=== PATIENT | female | born 1960 | race African-American/Black ===

== ENCOUNTER 2018-08-26 10:15 | Emergency (ER) ==
[2018-08-26 10:41] VITALS: BP 203/119; TEMP 98; BMI 40.0
--- NOTE | 2018-08-26 10:45 | ED.PDOC ---
General ED Provider: Dr. PRINCESS GUTIERREZ Chief Complaint: Medication Refill Stated Complaint: Redication refil request by son (POA). Patient off all medications approx 90 days. Has medical history as well as psych hx - schizophrenia. Son also requesting MH consult. Patient is minimally cooperative with the visit to ER; says there is nothing wrong with her and that she was taken off all medications because she did not need anything. Son says she threw meds away. Time Seen by Physician: 10:45 Mode of Arrival: Walk-In Information Source: Patient Nursing and Triage Documentation Reviewed and Agree: Yes Does patient meet sepsis criteria?: No System Inflammatory Response Syndrome: Not Applicable Sepsis Protocol: For patient's 13 years and over: Temp is 96.8 and below OR 101 and greater Pulse >90 BPM Resp >20/minute Acutely Altered Mental Status Are patient's symptoms suggestive of a new infection, such as: -Pneumonia -Skin, Soft Tissue -Endocarditis -UTI -Bone, Joint Infection -Implantable Device -Acute Abdominal Infection -Wound Infection -Meningitis -Blood Stream Catheter Infection -Unknown Review of Systems - Review Of Systems Constitutional: Reports: No symptoms Respiratory: Reports: No symptoms Cardiac: Reports: No symptoms GI: Reports: No symptoms All Other Systems: Reviewed and Negative Past Medical History - Past Medical History Previously Healthy: No (Medical/Psych hx; no current meds) Endocrine: Reports: DM 2 Cardiovascular: Reports: Hypertension Respiratory: Reports: Unknown (Possibly PE or DVT hx) Hematological: Reports: Other (Thrombocytopenia) Gastrointestinal: Reports: GERD Genitourinary: Reports: None Neuro/Psych: Reports: Schizophrenia Musculoskeletal: Reports: Unknown Cancer: Reports: Unknown Last Menstrual Period: unknown - Surgical History General Surgical History: Reports: Appendectomy - Family History Family History: Reports: Unknown - Social History Smoking Status: Former smoker Hx Substance Use: No Alcohol Screening: Occasionally Physical Exam - Physical Exam Appearance: Well-appearing Ill-appearing: None Pain Distress: None Eyes: RUBEN, EOMI ENT: Oropharynx normal Neck: Supple Respiratory: Airway patent, Breath sounds clear, Respirations nonlabored Cardiovascular: RRR, Pulses normal Musculoskeletal: Normal strength, ROM intact Skin: Warm, Dry, Normal color Neurological: Motor intact, Alert, Oriented Psychiatric: Affect appropriate, Mood appropriate (does not want to be here - says no problems and does not need medications) Critical Care Note - Critical Care Note Total Time (mins): 45 Comments: Medical evaluation, labs, clinical picture, history of MH issues/schizophrenia and discussion with MH workers who evaluated patient psychosocial presentaiton. Course - Course Hematology/Chemistry: 08/26/18 12:20 08/26/18 12:20 Orders, Labs, Meds: Lab Review 08/26/18 08/26/18 08/26/18 11:52 11:52 12:20 WBC 7.45 RBC 4.83 Hgb 12.5 Hct 39.0 MCV 80.7 L MCH 25.9 L MCHC 32.1 RDW Coeff of Radha 13.9 Plt Count 147 Immature Gran % (Auto) 0.1 Neut % (Auto) 73.7 Lymph % (Auto) 19.2 [place] % (Auto) 5.9 Eos % (Auto) 0.8 Baso % (Auto) 0.3 Immature Gran # (Auto) 0.0 Neut # (Auto) 5.5 Lymph # (Auto) 1.4 [place] # (Auto) 0.4 Eos # (Auto) 0.1 Baso # (Auto) 0.0 Plt Morphology Comment Anisocytosis Not present RBC Morph Comment Normal D-Dimer (Manual) Sodium Potassium Chloride Carbon Dioxide Anion Gap BUN Creatinine Estimated GFR (MDRD) BUN/Creatinine Ratio Glucose Calcium Total Bilirubin AST ALT Alkaline Phosphatase Total Protein Albumin Globulin Albumin/Globulin Ratio TSH Free T4 Urine Color Yellow Urine Clarity Clear Urine pH 5.5 Ur Specific [place] 1.010 Urine Protein Negative Urine Glucose (UA) Negative Urine Ketones Negative Urine Blood Negative Urine Nitrite Negative Urine Bilirubin Negative Urine Urobilinogen 0.2 Ur Leukocyte Esterase Negative Salicylate Level mg/dL Urine Opiates Screen Negative Ur Oxycodone Screen Negative Urine Methadone Screen Negative Ur Propoxyphene Screen Negative Acetaminophen Ur Barbiturates Screen Negative U Tricyclic Antidepress Negative Ur Phencyclidine Scrn Negative Ur Amphetamine Screen Negative U Methamphetamines Scrn Negative U Benzodiazepines Scrn Negative Urine Cocaine Screen Negative U Cannabinoids Screen Negative 08/26/18 08/26/18 08/26/18 12:20 12:20 12:20 WBC RBC Hgb Hct MCV MCH MCHC RDW Coeff of Radha Plt Count Immature Gran % (Auto) Neut % (Auto) Lymph % (Auto) [place] % (Auto) Eos % (Auto) Baso % (Auto) Immature Gran # (Auto) Neut # (Auto) Lymph # (Auto) [place] # (Auto) Eos # (Auto) Baso # (Auto) Plt Morphology Comment Anisocytosis RBC Morph Comment D-Dimer (Manual) 616.45 Sodium 142.2 Potassium 4.00 Chloride 106.9 Carbon Dioxide 25.5 Anion Gap 13.80 BUN 12.7 Creatinine 1.15 Estimated GFR (MDRD) 58.00 BUN/Creatinine Ratio 11.04 Glucose 97.4 Calcium 9.65 Total Bilirubin 0.31 AST 18.7 ALT 17.3 Alkaline Phosphatase 92.2 Total Protein 7.81 Albumin 4.55 Globulin 3.26 Albumin/Globulin Ratio 1.39 TSH 1.510 Free T4 0.98 Urine Color Urine Clarity Urine pH Ur Specific [place] Urine Protein Urine Glucose (UA) Urine Ketones Urine Blood Urine Nitrite Urine Bilirubin Urine Urobilinogen Ur Leukocyte Esterase Salicylate Level mg/dL < 1.00 Urine Opiates Screen Ur Oxycodone Screen Urine Methadone Screen Ur Propoxyphene Screen Acetaminophen < 10.0 L Ur Barbiturates Screen U Tricyclic Antidepress Ur Phencyclidine Scrn Ur Amphetamine Screen U Methamphetamines Scrn U Benzodiazepines Scrn Urine Cocaine Screen U Cannabinoids Screen Orders Category Date Time Status ACETAMINOPHEN Stat LAB 08/26/18 12:20 Completed CBC W/ AUTO DIFF Stat LAB 08/26/18 12:20 Completed COMPREHENSIVE METABOLIC PANEL Stat LAB 08/26/18 12:20 Completed D-DIMER Stat LAB 08/26/18 12:20 Completed FREE T4 (FREE THYROXINE) Stat LAB 08/26/18 12:20 Completed RBC MORPHOLOGY Stat LAB 08/26/18 12:20 Completed SALICYLATE Stat LAB 08/26/18 12:20 Completed THYROID STIMULATING HORMONE Stat LAB 08/26/18 12:20 Completed URINALYSIS C & S IF INDICATED Stat LAB 08/26/18 11:52 Completed URINE DRUG SCREEN (RAPID FOR ED) [DRUG SCREEN, URINE, LAB 08/26/18 11:52 Completed RAPID] Stat Vital Signs: Temp Pulse Resp BP Pulse Ox 08/26/18 10:16 98 F 96 H 20 203/119 H 95 Departure - Departure Time of Disposition: 13:26 Disposition: HOME SELF-CARE Discharge Problem: Schizophrenia, history of multiple episodes, in partial remission Instructions: Psychotic Disorder (ED) Condition: Stable Pt referred to PMD for follow-up: Yes (Follow up with primary care and with mental health as planned) IPMP verified?: No (N/A) Additional Instructions: Discharged in care of Son (POA) with the understanding you will take her to Psych[facility] in [address] for further evaluation as discussed with Mental Health workers today. Allergies/Adverse Reactions: Allergies No Known Allergies Allergy (Unverified 08/26/18 10:32) Home Medications: Ambulatory Orders Carvedilol [Coreg] 3.125 mg PO BID 08/26/18 Clozapine [Clozaril] 100 mg PO BEDTIME 08/26/18 Divalproex Sodium [Depakote ER] 500 mg PO BEDTIME 08/26/18 Glipizide 5 mg PO BID 08/26/18 Glycopyrrolate 1 mg PO TID 08/26/18 Indomethacin [Indocin] 25 mg PO TIDWM 08/26/18 Lactulose 30 ml PO DAILY 08/26/18 Metformin HCl 500 mg PO BID 08/26/18 Multivitamin with Folic Acid [Thera Tablet] 400 mcg PO DAILY 08/26/18 Olanzapine [Zyprexa] 10 mg PO BEDTIME 08/26/18 [place]-3 Acid Ethyl Esters [Lovaza] 1 gm PO BID 08/26/18 Paliperidone Palmitate [Invega Sustenna] 234 mg IM MONTHLY 08/26/18 Rivaroxaban [Xarelto] 10 mg PO BID 08/26/18 Disposition Discussed With: Other (Son and with Mental Health workers who evaluated patient and discussed with son who has POA and brought her in for initial evaluation. All blood work is esstentially WNL and indicates no emergent medical intervention prior to discharge to care of son as planned.)
== END 2018-08-26 13:35 | disposition home or self-care (01) ==
LOC: ED 10:15
DX: F20.9 Schizophrenia, unspecified (principal); Z76.0 Encounter for issue of repeat prescription; Z91.14 Patient's other noncompliance with medication regimen; E11.9 Type 2 diabetes mellitus without complications; I10 Essential (primary) hypertension
CPT/HCPCS: 36415; 80053; 80306; 80307; 81001; 84439; 84443; 85008; 85025; 85379; 99284